=== PATIENT | female | born 1960 | race Caucasian/White ===

== ENCOUNTER 2019-04-17 16:15 | Emergency (ER) | payer OTHER ==
[2019-04-17 17:12] VITALS: TEMP 98.6
[2019-04-17] MEDS ORDERED: KETOROLAC 30 MG/ML 1 ML VIAL IVP STA (18:15)
[2019-04-17] MEDS ORDERED: SODIUM CHLORIDE 0.9% 1,000 ML IV STA (18:15)
--- NOTE | 2019-04-17 18:44 | ED ---
General Adult HPI - General Chief complaint: GI Bleed Stated complaint: rectal bleeding/dizziness Time Seen by Provider: 04/17/19 17:59 Source: patient Mode of arrival: ambulatory Limitations: no limitations - History of Present Illness Initial comments: 58-year-old female patient presents to the emergency department today for evaluation of abdominal pain, bloating, diarrhea. Patient states she has had some blood present in her stools. Patient states she does have a history of ulcerative colitis and believes this is a flare. States her last flare within 2011. Patient states that she has been attempting to see a outpatient clinic for her symptoms however she does not have insurance and they referred her to come to the emergency department. Patient denies any fever or chills with this. States she has had intermittent nausea. Patient states she has tried to change her diet to relieve symptoms however does not helping. Patient states today she was feeling a little weak and dizzy but she believes this is from not eating as much. She denies any hematuria, dysuria, urinary frequency, urinary urgency. Patient denies any recent rash, shortness breath, chest pain, back pain, numbness, tingling, dizziness, weakness, hematuria, dysuria, urinary urgency, urinary frequency, headache, visual changes, or any other complaints. - Related Data Home Medications Medication Instructions Recorded Confirmed Aspirin EC [Ecotrin Low Dose] 81 mg PO DAILY 04/17/19 04/17/19 Lisinopril [Prinivil] 5 mg PO DAILY 04/17/19 04/17/19 Oil Of Oregano 1 tab PO DAILY 04/17/19 04/17/19 [place] Extract 1 tab PO DAILY 04/17/19 04/17/19 Ubidecarenone [Co Q-10] 100 mg PO DAILY 04/17/19 04/17/19 Vitamin A 8,000 unit PO DAILY 04/17/19 04/17/19 Vitamin B Complex 1 cap PO DAILY 04/17/19 04/17/19 Previous Rx's Medication Instructions Recorded Mesalamine [Asacol Hd] 1,600 mg PO TID #180 tablet. 04/17/19 predniSONE 50 mg PO DAILY #5 tablet 04/17/19 Allergies Allergy/AdvReac Type Severity Reaction Status Date / Time Iodinated Contrast- Oral and Allergy resp arrest Verified 04/17/19 18:27 IV Dye Sulfa (Sulfonamide Allergy Rash/Hives Verified 04/17/19 18:27 Antibiotics) Review of Systems ROS Statement: Those systems with pertinent positive or pertinent negative responses have been documented in the HPI. ROS Other: All systems not noted in ROS Statement are negative. Past Medical History Past Medical History: Hypertension Additional Past Medical History / Comment(s): colitis History of Any Multi-Drug Resistant Organisms: None Reported Past Surgical History: Orthopedic Surgery Past Psychological History: No Psychological Hx Reported Smoking Status: Never smoker Past Alcohol Use History: Occasional Past Drug Use History: None Reported General Exam Limitations: no limitations General appearance: alert, in no apparent distress, other (Physical well- developed, well-nourished adult female patient in no acute distress. Vital signs upon presentation are temperature 98.6F, pulse 68, respirations 18, blood pressure 140/75, pulse ox 99% on room air.) Eye exam: Present: normal appearance, PERRL, EOMI. Absent: scleral icterus, conjunctival injection, periorbital swelling ENT exam: Present: normal exam, normal oropharynx, mucous membranes moist Respiratory exam: Present: normal lung sounds bilaterally. Absent: respiratory distress, wheezes, rales, rhonchi, stridor Cardiovascular Exam: Present: regular rate, normal rhythm, normal heart sounds. Absent: systolic murmur, diastolic murmur, rubs, gallop, clicks GI/Abdominal exam: Present: soft, normal bowel sounds. Absent: distended, tenderness, guarding, rebound, rigid Neurological exam: Present: alert, oriented X3, CN II-XII intact Psychiatric exam: Present: normal affect, normal mood Skin exam: Present: warm, dry, intact, normal color. Absent: rash Course Vital Signs 04/17/19 04/17/19 17:06 21:04 Temperature 98.6 F Pulse Rate 68 64 Respiratory 18 16 Rate Blood Pressure 140/75 136/85 O2 Sat by Pulse 99 99 Oximetry Medical Decision Making - Medical Decision Making 58-year-old female patient presents to the emergency department today for evaluation of abdominal bloating, cramping, diarrhea, and rectal bleeding. Physical examination revealed a soft nontender abdomen. She is afebrile. Vital signs are within normal ranges. Labs reviewed and revealed a normal white blood cell count. Normal hemoglobin. Patient does have history of ulcer colitis states this feels like her usual flareups. She is requesting prescription for Asacol. Patient does not currently have insurance. I will give prescription for asacol as well as prednisone to use in the event that the asacol does not clear symptoms. She is instructed to follow up with gastroenterology for recheck as soon as possible. She is given information for the [facility]. Return parameters were discussed in detail. She verbalizes understanding and agrees with this plan. - Lab Data Result diagrams: 04/17/19 18:20 04/17/19 18:20 Lab Results 04/17/19 04/17/19 04/17/19 Range/Units 18:20 18:20 18:20 WBC 9.0 (3.8-10.6) k/uL RBC 4.81 (3.80-5.40) m/uL Hgb 14.1 (11.4-16.0) gm/dL Hct 42.2 (34.0-46.0) % MCV 87.7 (80.0-100.0) fL MCH 29.2 (25.0-35.0) pg MCHC 33.3 (31.0-37.0) g/dL RDW 14.7 (11.5-15.5) % Plt Count 223 (150-450) k/uL Neutrophils % 66 % Lymphocytes % 24 % Monocytes % 6 % Eosinophils % 2 % Basophils % 1 % Neutrophils # 5.9 (1.3-7.7) k/uL Lymphocytes # 2.2 (1.0-4.8) k/uL Monocytes # 0.5 (0-1.0) k/uL Eosinophils # 0.2 (0-0.7) k/uL Basophils # 0.1 (0-0.2) k/uL PT 10.8 (9.0-12.0) sec INR 1.0 (<1.2) APTT 23.2 (22.0-30.0) sec Sodium 142 (137-145) mmol/L Potassium 3.7 (3.5-5.1) mmol/L Chloride 106 (98-107) mmol/L Carbon Dioxide 27 (22-30) mmol/L Anion Gap 9 mmol/L BUN 11 (7-17) mg/dL Creatinine 0.92 (0.52-1.04) mg/dL Est GFR (CKD-EPI)AfAm 79 (>60 ml/min/1.73 sqM) Est GFR (CKD-EPI)NonAf 69 (>60 ml/min/1.73 sqM) Glucose 107 H (74-99) mg/dL Calcium 9.8 (8.4-10.2) mg/dL Total Bilirubin 0.4 (0.2-1.3) mg/dL AST 24 (14-36) U/L ALT 30 (9-52) U/L Alkaline Phosphatase 61 (38-126) U/L Total Protein 7.1 (6.3-8.2) g/dL Albumin 4.3 (3.5-5.0) g/dL Amylase 42 (30-110) U/L Lipase 162 (23-300) U/L Urine Color Urine Appearance (Clear) Urine pH (5.0-8.0) Ur Specific [place] (1.001-1.035) Urine Protein (Negative) Urine Glucose (UA) (Negative) Urine Ketones (Negative) Urine Blood (Negative) Urine Nitrite (Negative) Urine Bilirubin (Negative) Urine Urobilinogen (<2.0) mg/dL Ur Leukocyte Esterase (Negative) Urine RBC (0-5) /hpf Urine WBC (0-5) /hpf Ur Squamous Epith Cells (0-4) /hpf Hyaline Casts (0-2) /lpf Urine Mucus (None) /hpf 04/17/19 Range/Units 19:55 WBC (3.8-10.6) k/uL RBC (3.80-5.40) m/uL Hgb (11.4-16.0) gm/dL Hct (34.0-46.0) % MCV (80.0-100.0) fL MCH (25.0-35.0) pg MCHC (31.0-37.0) g/dL RDW (11.5-15.5) % Plt Count (150-450) k/uL Neutrophils % % Lymphocytes % % Monocytes % % Eosinophils % % Basophils % % Neutrophils # (1.3-7.7) k/uL Lymphocytes # (1.0-4.8) k/uL Monocytes # (0-1.0) k/uL Eosinophils # (0-0.7) k/uL Basophils # (0-0.2) k/uL PT (9.0-12.0) sec INR (<1.2) APTT (22.0-30.0) sec Sodium (137-145) mmol/L Potassium (3.5-5.1) mmol/L Chloride (98-107) mmol/L Carbon Dioxide (22-30) mmol/L Anion Gap mmol/L BUN (7-17) mg/dL Creatinine (0.52-1.04) mg/dL Est GFR (CKD-EPI)AfAm (>60 ml/min/1.73 sqM) Est GFR (CKD-EPI)NonAf (>60 ml/min/1.73 sqM) Glucose (74-99) mg/dL Calcium (8.4-10.2) mg/dL Total Bilirubin (0.2-1.3) mg/dL AST (14-36) U/L ALT (9-52) U/L Alkaline Phosphatase (38-126) U/L Total Protein (6.3-8.2) g/dL Albumin (3.5-5.0) g/dL Amylase (30-110) U/L Lipase (23-300) U/L Urine Color Yellow Urine Appearance Cloudy H (Clear) Urine pH 5.5 (5.0-8.0) Ur Specific [place] 1.013 (1.001-1.035) Urine Protein Negative (Negative) Urine Glucose (UA) Negative (Negative) Urine Ketones 1+ H (Negative) Urine Blood Small H (Negative) Urine Nitrite Negative (Negative) Urine Bilirubin Negative (Negative) Urine Urobilinogen <2.0 (<2.0) mg/dL Ur Leukocyte Esterase Trace H (Negative) Urine RBC 10 H (0-5) /hpf Urine WBC 3 (0-5) /hpf Ur Squamous Epith Cells 7 H (0-4) /hpf Hyaline Casts 2 (0-2) /lpf Urine Mucus Moderate H (None) /hpf - Radiology Data Radiology results: report reviewed, image reviewed Two-view x-ray of the abdomen is obtained. Report was reviewed in its entirety. Impression by Dr. Sandra Pineda shows no acute radiographic process Disposition Clinical Impression: Exacerbation of ulcerative colitis Disposition: HOME SELF-CARE Condition: Good Instructions (If sedation given, give patient instructions): Ulcerative Colitis (ED) Additional Instructions: Increase fluids. Take medications as directed. Follow-up with the primary care physician for recheck in 1-2 days. Return to emergency department immediately for any new, worsening, or concerning symptoms. Prescriptions: Mesalamine [Asacol Hd] 1,600 mg PO TID #180 tablet. predniSONE 50 mg PO DAILY #5 tablet Is patient prescribed a controlled substance at d/c from ED?: No Referrals: [facility] [NON-STAFF] - 1-2 days Time of Disposition: 20:51
[2019-04-17 18:47] LABS: Basophils # (A) 0.1 k/uL (0-0.2); Basophils % (A) 1 %; Eosinophils # (A) 0.2 k/uL (0-0.7); Eosinophils % (A) 2 %; HCT 42.2 % (34.0-46.0); HGB 14.1 gm/dL (11.4-16.0); Lymphocytes # (A) 2.2 k/uL (1.0-4.8); Lymphocytes % (A) 24 %; MCH 29.2 pg (25.0-35.0); MCHC 33.3 g/dL (31.0-37.0); MCV 87.7 fL (80.0-100.0); Monocytes # (A) 0.5 k/uL (0-1.0); Monocytes % (A) 6 %; Neutrophils # (A) 5.9 k/uL (1.3-7.7); Neutrophils % (A) 66 %; Platelet Count 223 k/uL (150-450); RBC 4.81 m/uL (3.80-5.40); RDW 14.7 % (11.5-15.5)
[2019-04-17 18:57] LABS: Partial Thromboplastin Time 23.2 sec (22.0-30.0); Prothrombin Time 10.8 sec (9.0-12.0)
[2019-04-17 19:12] LABS: Albumin 4.3 g/dL (3.5-5.0); Calcium 9.8 mg/dL (8.4-10.2); Potassium 3.7 mmol/L (3.5-5.1); Total Bilirubin 0.4 mg/dL (0.2-1.3); Total Protein 7.1 g/dL (6.3-8.2)
--- NOTE | 2019-04-17 19:58 | XR ---
EXAMINATION TYPE: XR KUB 2 views DATE OF EXAM: 04/17/2019 COMPARISON: NONE HISTORY: Pain and rectal bleeding TECHNIQUE: 2 upright views FINDINGS: Visualized lung bases and pleural spaces are negative. There is no bowel obstruction. Bowel gas pattern is normal. No pneumatosis or pneumoperitoneum. No acute skeletal or soft tissue findings are evident. IMPRESSION: No acute radiographic process.
[2019-04-17 20:08] LABS: Appearance,Urine Cloudy (Clear); Bilirubin,Urine Negative (Negative); Blood,Urine Small (Negative); Color,Urine Yellow; Glucose,Urine (UA) Negative (Negative); Hyaline Casts,Urine 2 /lpf (0-2); Ketones,Urine 1+ (Negative); Leukocyte Esterase,Urine Trace (Negative); Mucus,Urine Moderate /hpf; Nitrite,Urine Negative (Negative); PH, Urine 5.5 (5.0-8.0); Protein,Urine Negative (Negative); RBC,Urine 10 /hpf (0-5); Specific Gravity,Urine 1.013 (1.001-1.035); Squamous Epithelial Cell,Urine 7 /hpf (0-4); Urobilinogen,Urine <2.0 mg/dL (<2.0); WBC,Urine 3 /hpf (0-5)
[2019-04-17 21:06] VITALS: BP 136/85; PULSE 64; RESP 16
== END 2019-04-17 21:13 | disposition home or self-care (01) ==
LOC: EC 16:15
DX: K51.90 Ulcerative colitis, unspecified, without complications (principal); I10 Essential (primary) hypertension; Z88.2 Allergy status to sulfonamides; Z91.041 Radiographic dye allergy status; Z79.82 Long term (current) use of aspirin; Z79.899 Other long term (current) drug therapy
CPT/HCPCS: 99285; 96374; 96361; 36415; 80053; 82150; 83690; 85025; 85610; 85730; 81001; 74018; J1885

== ENCOUNTER 2019-05-25 17:56 | Inpatient (IN) | payer OTHER ==
[2019-05-25] MEDS ORDERED: PANTOPRAZOLE 40 MG/10 ML VIAL IVP STA (18:37)
[2019-05-25] MEDS ORDERED: MORPHINE SULFATE 4 MG/ML SYRINGE IV STA (18:37)
[2019-05-25] MEDS ORDERED: SODIUM CHLORIDE 0.9% 1,000 ML IV STA (18:37)
[2019-05-25] MEDS ORDERED: ONDANSETRON 4 MG/2 ML VIAL IVP STA (18:37)
--- NOTE | 2019-05-25 18:41 | ED ---
Abdominal Pain HPI - General Chief Complaint: Abdominal Pain Stated Complaint: fever Time Seen by Provider: 05/25/19 18:07 Source: patient, RN notes reviewed, old records reviewed Mode of arrival: ambulatory Limitations: no limitations - History of Present Illness Initial Comments: Patient is a 58-year-old female with a history of ulcerative colitis. She presents emergency Department today with complaints of fever and lower abdominal pain and loose stools and bloody stools over the past day. She reports that she's been suffering from ulcerative colitis flareups for the past few months. She states she's been off and on steriods. . Patient states she was concerned today because she also noticed some blisters within her mouth and complained of this fever. Patient states that she has significant LLQ pain. Patient reports that she's been trying to follow-up intermittently with GI specialist but has been unable to. Patient reports that she has had a 20 pound weight loss over the past few months. She states that she's had persistent diarrhea and bloody stools for the past few months. - Related Data Home Medications Medication Instructions Recorded Confirmed Aspirin EC [Ecotrin Low Dose] 81 mg PO DAILY 04/17/19 05/25/19 Lisinopril [Prinivil] 5 mg PO DAILY 04/17/19 05/25/19 Oil Of Oregano 1 tab PO DAILY 04/17/19 05/25/19 [place] Extract 1 tab PO DAILY 04/17/19 05/25/19 Ubidecarenone [Co Q-10] 100 mg PO DAILY 04/17/19 05/25/19 Vitamin A 8,000 unit PO DAILY 04/17/19 05/25/19 Vitamin B Complex 1 cap PO DAILY 04/17/19 05/25/19 [place] 3-6-9 1 cap PO DAILY 05/25/19 05/25/19 traMADol HCL [Ultram] 25 - 50 mg PO Q6H PRN 05/25/19 05/25/19 Previous Rx's Medication Instructions Recorded Mesalamine [Asacol Hd] 1,600 mg PO TID #180 tablet. 04/17/19 Allergies Allergy/AdvReac Type Severity Reaction Status Date / Time Iodinated Contrast- Oral and Allergy resp arrest Verified 05/25/19 22:45 IV Dye Sulfa (Sulfonamide Allergy Rash/Hives Verified 05/25/19 22:45 Antibiotics) Review of Systems ROS Statement: Those systems with pertinent positive or pertinent negative responses have been documented in the HPI. ROS Other: All systems not noted in ROS Statement are negative. Past Medical History Past Medical History: Hypertension Additional Past Medical History / Comment(s): colitis History of Any Multi-Drug Resistant Organisms: None Reported Past Surgical History: Orthopedic Surgery Past Psychological History: No Psychological Hx Reported Smoking Status: Never smoker Past Alcohol Use History: Occasional Past Drug Use History: None Reported General Exam - General Exam Comments Initial Comments: Patient is a 58-year-old female. Alert and oriented 3. Patient is no significant distress. Limitations: no limitations General appearance: alert, in no apparent distress Head exam: Present: atraumatic, normocephalic, normal inspection Eye exam: Present: normal appearance, other (Pale conjunctiva) ENT exam: Present: normal exam Neck exam: Present: normal inspection. Absent: tenderness, meningismus, lymphadenopathy Respiratory exam: Present: normal lung sounds bilaterally. Absent: respiratory distress, wheezes, rales, rhonchi, stridor Cardiovascular Exam: Present: regular rate, normal rhythm, normal heart sounds. Absent: systolic murmur, diastolic murmur, rubs, gallop, clicks GI/Abdominal exam: Present: soft, tenderness (LLQ tenderness), normal bowel sounds. Absent: distended, guarding, rebound, rigid Extremities exam: Present: normal inspection, full ROM, normal capillary refill. Absent: tenderness, pedal edema, joint swelling, calf tenderness Back exam: Present: normal inspection Neurological exam: Present: alert, oriented X3, CN II-XII intact Psychiatric exam: Present: normal affect, normal mood Skin exam: Present: warm, dry, intact, normal color. Absent: rash Course Vital Signs 05/25/19 05/25/19 17:59 20:31 Temperature 99 F Pulse Rate 89 74 Respiratory 18 16 Rate Blood Pressure 153/90 130/87 O2 Sat by Pulse 100 99 Oximetry Medical Decision Making - Medical Decision Making Patient is a 58-year-old female presents emergency department today for chronic diarrhea, bloody stools. With history of ulcerative colitis. Patient reports that her hemoglobin and strep today when her reported to her at 11.4. Was 14 one month ago. Patient has significant left lower quadrant tenderness. Due to significant history of ALLERGY with IV contrast Patient had a computed tomography scan without contrast. There is evidence of some ulcerative colitis. No other significant changes were noted. Patient case was discussed with Dr. Wood. With significantly less, inability to follow-up with GI specialty soon discussed. Admit the Patient for IV fluids and consult. We'll start the Patient on IV steroids at this time. - Lab Data Result diagrams: 05/25/19 19:08 05/25/19 19:08 Lab Results 05/25/19 05/25/19 05/25/19 Range/Units 19:08 19:08 19:08 WBC 9.5 (3.8-10.6) k/uL RBC 3.92 (3.80-5.40) m/uL Hgb 11.4 (11.4-16.0) gm/dL Hct 35.0 (34.0-46.0) % MCV 89.3 (80.0-100.0) fL MCH 29.2 (25.0-35.0) pg MCHC 32.7 (31.0-37.0) g/dL RDW 13.3 (11.5-15.5) % Plt Count 421 (150-450) k/uL Neutrophils % 81 % Lymphocytes % 12 % Monocytes % 5 % Eosinophils % 1 % Basophils % 0 % Neutrophils # 7.7 (1.3-7.7) k/uL Lymphocytes # 1.1 (1.0-4.8) k/uL Monocytes # 0.5 (0-1.0) k/uL Eosinophils # 0.1 (0-0.7) k/uL Basophils # 0.0 (0-0.2) k/uL PT (9.0-12.0) sec INR (<1.2) APTT (22.0-30.0) sec Sodium 137 (137-145) mmol/L Potassium 3.9 (3.5-5.1) mmol/L Chloride 98 (98-107) mmol/L Carbon Dioxide 29 (22-30) mmol/L Anion Gap 10 mmol/L BUN 23 H (7-17) mg/dL Creatinine 0.96 (0.52-1.04) mg/dL Est GFR (CKD-EPI)AfAm 75 (>60 ml/min/1.73 sqM) Est GFR (CKD-EPI)NonAf 65 (>60 ml/min/1.73 sqM) Glucose 103 H (74-99) mg/dL Plasma Lactic Acid Devin (0.7-2.0) mmol/L Calcium 9.0 (8.4-10.2) mg/dL Total Bilirubin 0.4 (0.2-1.3) mg/dL AST 22 (14-36) U/L ALT 28 (9-52) U/L Alkaline Phosphatase 92 (38-126) U/L Total Protein 6.0 L (6.3-8.2) g/dL Albumin 3.1 L (3.5-5.0) g/dL Amylase 52 (30-110) U/L Lipase 169 (23-300) U/L Urine Color Urine Appearance (Clear) Urine pH (5.0-8.0) Ur Specific [place] (1.001-1.035) Urine Protein (Negative) Urine Glucose (UA) (Negative) Urine Ketones (Negative) Urine Blood (Negative) Urine Nitrite (Negative) Urine Bilirubin (Negative) Urine Urobilinogen (<2.0) mg/dL Ur Leukocyte Esterase (Negative) Urine RBC (0-5) /hpf Urine WBC (0-5) /hpf Ur Squamous Epith Cells (0-4) /hpf Amorphous Sediment (None) /hpf Urine Mucus (None) /hpf Stool Occult Blood (Negative) Blood Type A Positive Blood Type Confirm Blood Type Recheck CABO Indicated Antibody Screen NEGATIVE Spec Expiration Date 05/28/2019230705/25/19 05/25/19 05/25/19 Range/Units 19:08 19:08 20:14 WBC (3.8-10.6) k/uL RBC (3.80-5.40) m/uL Hgb (11.4-16.0) gm/dL Hct (34.0-46.0) % MCV (80.0-100.0) fL MCH (25.0-35.0) pg MCHC (31.0-37.0) g/dL RDW (11.5-15.5) % Plt Count (150-450) k/uL Neutrophils % % Lymphocytes % % Monocytes % % Eosinophils % % Basophils % % Neutrophils # (1.3-7.7) k/uL Lymphocytes # (1.0-4.8) k/uL Monocytes # (0-1.0) k/uL Eosinophils # (0-0.7) k/uL Basophils # (0-0.2) k/uL PT 10.5 (9.0-12.0) sec INR 1.0 (<1.2) APTT 26.0 (22.0-30.0) sec Sodium (137-145) mmol/L Potassium (3.5-5.1) mmol/L Chloride (98-107) mmol/L Carbon Dioxide (22-30) mmol/L Anion Gap mmol/L BUN (7-17) mg/dL Creatinine (0.52-1.04) mg/dL Est GFR (CKD-EPI)AfAm (>60 ml/min/1.73 sqM) Est GFR (CKD-EPI)NonAf (>60 ml/min/1.73 sqM) Glucose (74-99) mg/dL Plasma Lactic Acid Devin 0.9 (0.7-2.0) mmol/L Calcium (8.4-10.2) mg/dL Total Bilirubin (0.2-1.3) mg/dL AST (14-36) U/L ALT (9-52) U/L Alkaline Phosphatase (38-126) U/L Total Protein (6.3-8.2) g/dL Albumin (3.5-5.0) g/dL Amylase (30-110) U/L Lipase (23-300) U/L Urine Color Urine Appearance (Clear) Urine pH (5.0-8.0) Ur Specific [place] (1.001-1.035) Urine Protein (Negative) Urine Glucose (UA) (Negative) Urine Ketones (Negative) Urine Blood (Negative) Urine Nitrite (Negative) Urine Bilirubin (Negative) Urine Urobilinogen (<2.0) mg/dL Ur Leukocyte Esterase (Negative) Urine RBC (0-5) /hpf Urine WBC (0-5) /hpf Ur Squamous Epith Cells (0-4) /hpf Amorphous Sediment (None) /hpf Urine Mucus (None) /hpf Stool Occult Blood (Negative) Blood Type Blood Type Confirm A Positive Blood Type Recheck Antibody Screen Spec Expiration Date 05/25/19 05/25/19 Range/Units 20:15 21:33 WBC (3.8-10.6) k/uL RBC (3.80-5.40) m/uL Hgb (11.4-16.0) gm/dL Hct (34.0-46.0) % MCV (80.0-100.0) fL MCH (25.0-35.0) pg MCHC (31.0-37.0) g/dL RDW (11.5-15.5) % Plt Count (150-450) k/uL Neutrophils % % Lymphocytes % % Monocytes % % Eosinophils % % Basophils % % Neutrophils # (1.3-7.7) k/uL Lymphocytes # (1.0-4.8) k/uL Monocytes # (0-1.0) k/uL Eosinophils # (0-0.7) k/uL Basophils # (0-0.2) k/uL PT (9.0-12.0) sec INR (<1.2) APTT (22.0-30.0) sec Sodium (137-145) mmol/L Potassium (3.5-5.1) mmol/L Chloride (98-107) mmol/L Carbon Dioxide (22-30) mmol/L Anion Gap mmol/L BUN (7-17) mg/dL Creatinine (0.52-1.04) mg/dL Est GFR (CKD-EPI)AfAm (>60 ml/min/1.73 sqM) Est GFR (CKD-EPI)NonAf (>60 ml/min/1.73 sqM) Glucose (74-99) mg/dL Plasma Lactic Acid Devin (0.7-2.0) mmol/L Calcium (8.4-10.2) mg/dL Total Bilirubin (0.2-1.3) mg/dL AST (14-36) U/L ALT (9-52) U/L Alkaline Phosphatase (38-126) U/L Total Protein (6.3-8.2) g/dL Albumin (3.5-5.0) g/dL Amylase (30-110) U/L Lipase (23-300) U/L Urine Color Yellow Urine Appearance Clear (Clear) Urine pH 7.0 (5.0-8.0) Ur Specific [place] 1.008 (1.001-1.035) Urine Protein Negative (Negative) Urine Glucose (UA) Negative (Negative) Urine Ketones 1+ H (Negative) Urine Blood Trace H (Negative) Urine Nitrite Negative (Negative) Urine Bilirubin Negative (Negative) Urine Urobilinogen <2.0 (<2.0) mg/dL Ur Leukocyte Esterase Negative (Negative) Urine RBC 6 H (0-5) /hpf Urine WBC 6 H (0-5) /hpf Ur Squamous Epith Cells 1 (0-4) /hpf Amorphous Sediment Rare H (None) /hpf Urine Mucus Rare H (None) /hpf Stool Occult Blood Positive H (Negative) Blood Type Blood Type Confirm Blood Type Recheck Antibody Screen Spec Expiration Date 05/25/19 19:21 EKG shows sinus rhythm with premature atrial complex. Nonspecific T-wave abnormality. Abnormal EKG. Ventricular rate is 77 bpm. Was 180 ms. Confucianism 82 ms. QT QTc is 340/393 ms. - Radiology Data Radiology results: report reviewed Mild diffuse wall thickening and large bowel suggestive of nonspecific colitis. No free air. No bowel traction. Disposition Clinical Impression: Colitis, Occult blood positive stool, History of weight loss Disposition: ADMITTED IP TO THIS HOSP Condition: Good Is patient prescribed a controlled substance at d/c from ED?: No Referrals: None,Stated [Primary Care Provider] - 1-2 days Time of Disposition: 23:22
--- NOTE | 2019-05-25 19:27 | XR ---
EXAMINATION TYPE: XR KUB DATE OF EXAM: 05/25/2019 COMPARISON: 04/17/2019 HISTORY: Fever TECHNIQUE: Single view FINDINGS: Bowel gas pattern is normal. There is no sign of intestinal obstruction or pneumoperitoneum . Fecal pattern is normal. Lung bases are clear. There are no pathologic calcifications. There are nu merous phleboliths in the pelvis. IMPRESSION: Nonacute abdomen. No change.
[2019-05-25 19:32] LABS: Basophils % (A) 0 %; Eosinophils # (A) 0.1 k/uL (0-0.7); Eosinophils % (A) 1 %; HGB 11.4 gm/dL (11.4-16.0); Lymphocytes # (A) 1.1 k/uL (1.0-4.8); Lymphocytes % (A) 12 %; MCH 29.2 pg (25.0-35.0); MCHC 32.7 g/dL (31.0-37.0); MCV 89.3 fL (80.0-100.0); Mean Platelet Volume 6.5; Monocytes # (A) 0.5 k/uL (0-1.0); Monocytes % (A) 5 %; Neutrophils # (A) 7.7 k/uL (1.3-7.7); Neutrophils % (A) 81 %; Platelet Count 421 k/uL (150-450); RBC 3.92 m/uL (3.80-5.40); RDW 13.3 % (11.5-15.5); WBC 9.5 k/uL (3.8-10.6)
[2019-05-25 19:43] LABS: Albumin 3.1 g/dL (3.5-5.0); Potassium 3.9 mmol/L (3.5-5.1); Total Bilirubin 0.4 mg/dL (0.2-1.3)
[2019-05-25 19:51] LABS: Prothrombin Time 10.5 sec (9.0-12.0)
[2019-05-25] MEDS ORDERED: diphenhydrAMINE 50 MG/ML 1 ML VIAL IVP STA (20:01)
[2019-05-25] MEDS ORDERED: methylPREDNISolone SOD SUCCI 125 MG/2 ML VIAL IV STA (20:01)
[2019-05-25] MEDS ORDERED: FAMOTIDINE 20 MG/2 ML VIAL IV STA (20:01)
[2019-05-25] MEDS: SODIUM CHLORIDE 0.9% 1,000 ML IV SCH (20:24)
[2019-05-25 21:00] LABS: Amorphous Sediment,Urine Rare /hpf; Appearance,Urine Clear (Clear); Bilirubin,Urine Negative (Negative); Blood,Urine Trace (Negative); Color,Urine Yellow; Glucose,Urine (UA) Negative (Negative); Ketones,Urine 1+ (Negative); Leukocyte Esterase,Urine Negative (Negative); Mucus,Urine Rare /hpf; Nitrite,Urine Negative (Negative); Protein,Urine Negative (Negative); RBC,Urine 6 /hpf (0-5); Specific Gravity,Urine 1.008 (1.001-1.035); Squamous Epithelial Cell,Urine 1 /hpf (0-4); Urobilinogen,Urine <2.0 mg/dL (<2.0); WBC,Urine 6 /hpf (0-5)
--- NOTE | 2019-05-25 21:18 | CT ---
EXAMINATION TYPE: CT abdomen pelvis wo con DATE OF EXAM: 05/25/2019 COMPARISON: None HISTORY: Fever and rectal bleeding. History of ulcerative colitis. CT DLP: 349.3 mGycm Automated exposure control for dose reduction was used. TECHNIQUE: Helical acquisition of images was performed from the lung bases through the pelvis. FINDINGS: Lung bases are clear. There is no pleural effusion. Heart size is normal. There is no pericardial eff usion. There is 2 x 1 cm density in the gastric fundus that could be medication. Spleen appears leia l. There is no pancreatic mass. This irregular hypodense 3 cm area in the anterior right lobe of the liver that could be a hemangioma. There is 1.5 cm hypodensity anterior right lobe of the liver. This could be a cyst. Gallbladder appears normal. Bile ducts are not dilated. There is no adrenal mass. Kidneys have normal size. There is no hydronephrosis. Ureters are not dilat ed. Bladder distends smoothly. There is no free fluid in the pelvis. There is no inguinal hernia. There is mild wall thickening and straightening of the rectosigmoid colon. There is also mild wall th ickening of the descending colon and transverse colon. Uterus is anteverted. Lumbar spine is intact. Bony pelvis is intact. IMPRESSION: THERE IS MILD DIFFUSE WALL THICKENING OF THE LARGE BOWEL SUGGESTIVE OF NONSPECIFIC COLITIS. NO FREE A IR. NO EVIDENCE OF BOWEL OBSTRUCTION.
[2019-05-25] MEDS ORDERED: NALOXONE 0.4 MG/ML 1 ML VIAL IV PRN (23:23)
[2019-05-26] MEDS: MORPHINE SULFATE 4 MG/ML SYRINGE IV PRN ×3 (00:54→21:57)
[2019-05-26] MEDS: SODIUM CHLORIDE 0.9% 1,000 ML IV SCH ×2 (06:14→07:48)
[2019-05-26] MEDS: methylPREDNISolone SOD SUCCI 40 MG/ML 1 ML VIAL IV SCH ×3 (12:31→23:24)
[2019-05-26] MEDS: BALSALAZIDE DISODIUM 750 MG CAPSULE PO SCH ×2 (12:33→17:15)
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
[2019-05-27] MEDS: MORPHINE SULFATE 4 MG/ML SYRINGE IV PRN ×3 (02:53→21:02)
[2019-05-27] MEDS: SODIUM CHLORIDE 0.9% 1,000 ML IV SCH ×3 (03:37→20:56)
[2019-05-27] MEDS: BALSALAZIDE DISODIUM 750 MG CAPSULE PO SCH ×3 (07:16→17:00)
[2019-05-27] MEDS: methylPREDNISolone SOD SUCCI 40 MG/ML 1 ML VIAL IV SCH ×2 (07:16→15:10)
[2019-05-27 09:04] LABS: Basophils % (A) 0 %; Eosinophils % (A) 0 %; HCT 34.7 % (34.0-46.0); HGB 10.8 gm/dL (11.4-16.0); Lymphocytes # (A) 1.1 k/uL (1.0-4.8); Lymphocytes % (A) 11 %; MCH 28.6 pg (25.0-35.0); Mean Platelet Volume 6.7; Monocytes # (A) 0.5 k/uL (0-1.0); Monocytes % (A) 5 %; Neutrophils # (A) 8.2 k/uL (1.3-7.7); Neutrophils % (A) 82 %; Platelet Count 495 k/uL (150-450); RBC 3.77 m/uL (3.80-5.40); RDW 13.5 % (11.5-15.5)
[2019-05-27 09:14] LABS: C Reactive Protein 57.7 mg/L (<10.0); Potassium 4.5 mmol/L (3.5-5.1); Total Bilirubin 0.3 mg/dL (0.2-1.3); Total Protein 5.7 g/dL (6.3-8.2)
--- NOTE | 2019-05-27 10:01 | PN ---
PROGRESS NOTE DATE OF DICTATION: May 27, 2019 Patient is a 58-year-old pleasant white female with longstanding history of ulcerative colitis diagnosed in 1973. She recently was admitted to the hospital because of flare- up of ulcerative colitis. For the last 2 months, she has been having bloody diarrhea with bowel movements anywhere from 10 a day which are loose to watery in consistency associated with left lower quadrant abdominal pain and cramping. She was started on IV steroids yesterday with Solu-Medrol 20 mg q.8 hours and she is feeling much better. She still has left lower quadrant abdominal pain and frequent bowel movements with some blood and mucus in the stool. No nausea or vomiting. PHYSICAL EXAMINATION: Appears comfortable. No apparent distress. VITAL SIGNS: Stable. Blood pressure is 105/67, pulse rate 80, temperature 98.2. HEENT examination unremarkable. Conjunctivae pink. Sclerae anicteric. Oral cavity no lesions. NECK: No JVD or lymph node enlargement. CHEST: Clear to auscultation. HEART: Regular rate and rhythm. ABDOMEN: Soft. Bowel sounds are positive. No organomegaly. EXTREMITIES: No pedal edema. SKIN no rashes. NEUROLOGIC: Alert and oriented x3. No focal deficits. LABS: From today: WBC 10, hemoglobin 10.8, platelets normal. CRP is 57.7. Basic metabolic panel is within normal limits. IMPRESSION: Exacerbation of ulcerative colitis. Presently on IV steroids with Solu-Medrol 20 mg q.8 hours and clinically, gradually improving. RECOMMENDATIONS: 1. Continue with IV Solu-Medrol today and if she is doing much better, she can be switched to oral prednisone 40 mg daily tomorrow, which needs to be tapered by 5 mg every week on an outpatient basis. 2. Continue with Colazal 1500 mg 3 times daily. 3. Advance to regular diet. 4. Thank you for this consultation. We will follow with you closely. MMODL / IJN: [id number] /
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
[2019-05-28] MEDS: methylPREDNISolone SOD SUCCI 40 MG/ML 1 ML VIAL IV SCH ×3 (00:17→16:55)
[2019-05-28] MEDS: MORPHINE SULFATE 4 MG/ML SYRINGE IV PRN ×3 (04:12→21:50)
[2019-05-28] MEDS: BALSALAZIDE DISODIUM 750 MG CAPSULE PO SCH ×3 (07:19→16:55)
[2019-05-28] MEDS: SODIUM CHLORIDE 0.9% 1,000 ML IV SCH ×2 (07:20→16:57)
[2019-05-28 09:54] LABS: Basophils % (A) 0 %; Eosinophils % (A) 0 %; HCT 34.8 % (34.0-46.0); HGB 10.6 gm/dL (11.4-16.0); Lymphocytes # (A) 0.7 k/uL (1.0-4.8); Lymphocytes % (A) 6 %; MCH 28.2 pg (25.0-35.0); MCHC 30.6 g/dL (31.0-37.0); MCV 92.1 fL (80.0-100.0); Mean Platelet Volume 6.4; Monocytes # (A) 0.3 k/uL (0-1.0); Monocytes % (A) 3 %; Neutrophils # (A) 10.6 k/uL (1.3-7.7); Neutrophils % (A) 90 %; Platelet Count 548 k/uL (150-450); RBC 3.78 m/uL (3.80-5.40); RDW 13.6 % (11.5-15.5); WBC 11.8 k/uL (3.8-10.6)
--- NOTE | 2019-05-28 18:54 | P.PN ---
Subjective Progress Note Date: 05/28/19 Principal diagnosis: GI bleed Patient was seen and examined. No acute events overnight. Patient reports improvement in her hematochezia. She does continue to complain of some d iarrhea, multiple episodes today described as watery and mucousy. She denies any chest pain, shortness of breath or palpitations. Feels like the left side of her abdomen is distended. Objective - Vital Signs Vital signs: Vital Signs Temp 98.7 F 05/28/19 14:39 Pulse 84 05/28/19 14:39 Resp 16 05/28/19 14:39 BP 127/78 05/28/19 14:39 Pulse Ox 99 05/28/19 14:39 Intake & Output 05/27/19 05/28/19 05/28/19 18:59 06:59 18:59 Intake Total 1000 500 900 Balance 1000 500 900 Intake: Oral 1000 500 900 Other: Voiding Method Toilet Toilet # Voids 2 2 2 - Exam General: [non toxic], [no distress], [appears at stated age] Derm: [warm], [dry] Head: [atraumatic], [normocephalic], [symmetric] Eyes: [EOMI], [no lid lag], [anicteric sclera] Mouth: [no lip lesion], [mucus membranes moist] Cardiovascular: [S1S2 reg], [no murmur], [positive posterior tibial pulse bilateral], Lungs: [CTA bilateral], [no rhonchi, no rales] , [no accessory muscle use] Abdominal: [soft], [tenderness to deep palpation of the left upper and lower quadrant without rebound], [no guarding], [no appreciable organomegaly] Ext: [no gross muscle atrophy], [no edema], [no contractures] Neuro: [ CN II-XI grossly intact], [no focal neuro deficits] Psych: [Alert], [oriented], [appropriate affect] - Labs CBC & Chem 7: 05/28/19 09:06 05/27/19 08:17 Labs: Abnormal Lab Results - Last 24 Hours (Table) 05/27/19 05/28/19 Range/Units 08:17 09:06 WBC 11.8 H (3.8-10.6) k/uL RBC 3.78 L (3.80-5.40) m/uL Hgb 10.6 L (11.4-16.0) gm/dL MCHC 30.6 L (31.0-37.0) g/dL Plt Count 548 H (150-450) k/uL Neutrophils # 10.6 H (1.3-7.7) k/uL Lymphocytes # 0.7 L (1.0-4.8) k/uL Iron 19 L (50-170) ug/dL TIBC 190 L (228-460) ug/dL Iron Saturation 10.00 L (12.00-45.00) Microbiology - Last 24 Hours (Table) 05/25/19 21:35 Stool Culture - Final Stool Assessment and Plan Assessment: Ulcerative colitis exacerbation Lower GI bleed C. difficile negative. Stool for occult blood positive. Plans: Continue Colazal. We'll switch Solu-Medrol to prednisone by mouth tomorrow. Follow GI recommendations. Hemoglobin 10.6 from 10.8. Plans: Daily CBC. Patient is pending clinical improvement. We'll follow GI recommendations. Likely DC in 1-2 days.
[2019-05-29] MEDS: MORPHINE SULFATE 4 MG/ML SYRINGE IV PRN ×3 (03:22→16:35)
[2019-05-29] MEDS: SODIUM CHLORIDE 0.9% 1,000 ML IV SCH ×3 (04:25→23:55)
[2019-05-29] MEDS: ASPIRIN 81 MG PO SCH (07:39)
[2019-05-29] MEDS: LISINOPRIL 5 MG TAB PO SCH (07:39)
[2019-05-29] MEDS: BALSALAZIDE DISODIUM 750 MG CAPSULE PO SCH ×3 (07:39→16:29)
[2019-05-29] MEDS ORDERED: predniSONE 20 MG TAB PO SCH (09:00)
[2019-05-29 09:49] LABS: Basophils % (A) 0 %; Eosinophils # (A) 0.2 k/uL (0-0.7); Eosinophils % (A) 3 %; HCT 30.2 % (34.0-46.0); HGB 9.7 gm/dL (11.4-16.0); Lymphocytes # (A) 1.3 k/uL (1.0-4.8); Lymphocytes % (A) 19 %; MCH 28.4 pg (25.0-35.0); MCV 88.6 fL (80.0-100.0); Mean Platelet Volume 6.8; Monocytes # (A) 0.4 k/uL (0-1.0); Monocytes % (A) 6 %; Neutrophils # (A) 4.8 k/uL (1.3-7.7); Neutrophils % (A) 71 %; Platelet Count 380 k/uL (150-450); RBC 3.41 m/uL (3.80-5.40); RDW 13.8 % (11.5-15.5); WBC 6.8 k/uL (3.8-10.6)
[2019-05-29 09:50] LABS: Calcium 8.4 mg/dL (8.4-10.2)
--- NOTE | 2019-05-29 11:43 | P.PN ---
Subjective Progress Note Date: 05/29/19 Principal diagnosis: Ulcerative colitis flare Patient was seen and examined. No acute events overnight. Patient reports urgency to defecate but unable to produce decent amount of stool. Complains of abdominal bloating. Specks of blood in stool. She denies any chest pain, sh ortness of breath or palpitations. No nausea or vomiting. No fever or chills. Objective - Vital Signs Vital signs: Vital Signs Temp 97.5 F L 05/29/19 04:25 Pulse 63 05/29/19 04:25 Resp 20 05/29/19 04:25 BP 120/69 05/29/19 04:25 Pulse Ox 95 05/29/19 04:25 Intake & Output 05/28/19 05/29/19 05/29/19 18:59 06:59 18:59 Intake Total 900 Balance 900 Intake: Oral 900 Other: Voiding Method Toilet # Voids 2 1 - Exam General: [non toxic], [no distress], [appears at stated age] Derm: [warm], [dry] Head: [atraumatic], [normocephalic], [symmetric] Eyes: [EOMI], [no lid lag], [anicteric sclera] Mouth: [no lip lesion], [mucus membranes moist] Cardiovascular: [S1S2 reg], [no murmur], [positive posterior tibial pulse bi lateral], Lungs: [CTA bilateral], [no rhonchi, no rales] , [no accessory muscle use] Abdominal: [soft], [tenderness to deep palpation of the left upper and lower quadrant without rebound], [no guarding], [no appreciable organomegaly] Ext: [no gross muscle atrophy], [no edema], [no contractures] Neuro: [no focal neuro deficits] Psych: [Alert], [oriented], [appropriate affect] - Labs CBC & Chem 7: 05/29/19 08:57 05/29/19 08:57 Labs: Abnormal Lab Results - Last 24 Hours (Table) 05/27/19 05/29/19 05/29/19 Range/Units 08:17 08:57 08:57 RBC 3.41 L (3.80-5.40) m/uL Hgb 9.7 L (11.4-16.0) gm/dL Hct 30.2 L (34.0-46.0) % BUN 22 H (7-17) mg/dL Iron 19 L (50-170) ug/dL TIBC 190 L (228-460) ug/dL Iron Saturation 10.00 L (12.00-45.00) Microbiology - Last 24 Hours (Table) 05/25/19 21:35 Stool Culture - Final Stool Assessment and Plan Assessment: Ulcerative colitis exacerbation Lower GI bleed C. difficile negative. Stool for occult blood positive. Plans: Continue Colazal. We will change patient back from prednisone to Solu-Medrol 20 mg IV every 8 hours. Repeat CRP in the morning. Follow GI recommendations. Repeat KUB. Hemoglobin 9.7 from 10.8. Plans: Daily CBC. Patient is pending clinical improvement. We'll follow GI recommendations. Likely DC in 1-2 days.
[2019-05-29 14:19] VITALS: BMI 22.1
--- NOTE | 2019-05-29 14:53 | XR ---
KUB HISTORY: Abdomen pain Frontal KUB and 2 images correlated to KUB 05/25/[address] abdomen pelvis 05/25/2019 Featureless appearance is noted to the colon in the distal transverse and descending colon region. No evident pneumoperitoneum or bowel obstruction. Multiple calcifications in the pelvis are again noted . Degenerative disc changes in the visualized spine. IMPRESSION: Correlate for colitis
[2019-05-29] MEDS: methylPREDNISolone SOD SUCCI 40 MG/ML 1 ML VIAL IV SCH ×2 (16:30→23:57)
[2019-05-29] MEDS: ONDANSETRON 4 MG/2 ML VIAL IVP PRN (18:02)
[2019-05-30] MEDS: MORPHINE SULFATE 4 MG/ML SYRINGE IV PRN ×4 (00:01→20:03)
[2019-05-30] MEDS: ASPIRIN 81 MG PO SCH (08:26)
[2019-05-30] MEDS: BALSALAZIDE DISODIUM 750 MG CAPSULE PO SCH ×3 (08:26→17:18)
[2019-05-30] MEDS: LISINOPRIL 5 MG TAB PO SCH (08:26)
[2019-05-30] MEDS: methylPREDNISolone SOD SUCCI 40 MG/ML 1 ML VIAL IV SCH ×3 (08:26→23:32)
[2019-05-30 10:20] LABS: HCT 29.2 % (34.0-46.0); HGB 9.6 gm/dL (11.4-16.0); MCH 29.2 pg (25.0-35.0); MCHC 32.8 g/dL (31.0-37.0); MCV 89.1 fL (80.0-100.0); Platelet Count 433 k/uL (150-450); RBC 3.28 m/uL (3.80-5.40); RDW 14.1 % (11.5-15.5); WBC 10.2 k/uL (3.8-10.6)
[2019-05-30 10:41] LABS: Potassium 4.2 mmol/L (3.5-5.1)
[2019-05-30 10:43] LABS: Albumin 2.4 g/dL (3.5-5.0); C Reactive Protein 63.8 mg/L (<10.0); Calcium 8.4 mg/dL (8.4-10.2); Total Bilirubin 0.2 mg/dL (0.2-1.3); Total Protein 4.9 g/dL (6.3-8.2)
--- NOTE | 2019-05-30 11:14 | P.PN ---
Subjective Progress Note Date: 05/30/19 Principal diagnosis: UC flare patient was seen and examined. No acute events overnight. Patient reports slow improvement in her symptoms since yesterday. Complains of abdominal pain, left- sided, 3-4 out of 10 ache exacerbated to 6 out of 10 in severity. Patient reports 2-3 watery bowel movements without any blood. She is tolerating minimal amounts of food. Hemoglobin from 9.7-9.6 this morning. Objective - Vital Signs Vital signs: Vital Signs Temp 97.9 F 05/30/19 05:40 Pulse 65 05/30/19 05:40 Resp 16 05/30/19 05:40 BP 114/71 05/30/19 05:40 Pulse Ox 98 05/30/19 05:40 Intake & Output 05/29/19 05/30/19 05/30/19 18:59 06:59 18:59 Weight 58.4 kg Other: # Voids 3 2 # Bowel Movements 0 - Exam General: [non toxic], [no distress], [appears at stated age] Derm: [warm], [dry] Head: [atraumatic], [normocephalic], [symmetric] Eyes: [EOMI], [no lid lag], [anicteric sclera] Mouth: [no lip lesion], [mucus membranes moist] Cardiovascular: [S1S2 reg], [no murmur], [positive posterior tibial pulse bilate ral], Lungs: [CTA bilateral], [no rhonchi, no rales] , [no accessory muscle use] Abdominal: [soft], [tenderness to deep palpation of the left upper and lower quadrant without rebound], [no guarding], [no appreciable organomegaly] Ext: [no gross muscle atrophy], [no edema], [no contractures] Neuro: [no focal neuro deficits] Psych: [Alert], [oriented], [appropriate affect] - Labs CBC & Chem 7: 05/30/19 09:50 05/30/19 09:50 Labs: Abnormal Lab Results - Last 24 Hours (Table) 05/30/19 05/30/19 Range/Units 09:50 09:50 RBC 3.28 L (3.80-5.40) m/uL Hgb 9.6 L (11.4-16.0) gm/dL Hct 29.2 L (34.0-46.0) % Carbon Dioxide 31 H (22-30) mmol/L BUN 22 H (7-17) mg/dL Glucose 165 H (74-99) mg/dL AST 11 L (14-36) U/L C-Reactive Protein 63.8 H (<10.0) mg/L Total Protein 4.9 L (6.3-8.2) g/dL Albumin 2.4 L (3.5-5.0) g/dL Microbiology - Last 24 Hours (Table) 05/25/19 21:35 Stool Culture - Final Stool Assessment and Plan Assessment: Ulcerative colitis exacerbation Lower GI bleed C. difficile negative. Stool for occult blood positive. As seen on CT abdomen and pelvis. Colitis confirmed on KUB yesterday of the transverse and descending colon. Plans: Continue Colazal. Continue Solu-Medrol 20 mg IV every 8 hours. Repeat CRP in the morning. Follow GI recommendations. Hemoglobin 9.6 from 10.8. Plans: Daily CBC. Patient is pending clinical improvement. We'll follow GI recommendations. Likely DC in 1-2 days.
[2019-05-30] MEDS: ONDANSETRON 4 MG/2 ML VIAL IVP PRN (11:45)
--- NOTE | 2019-05-30 12:23 | CDI ---
Documentation Clarification Form Date: 05/30/19 1221 From: Charmaine Valdez Admit Date: 05/27/2019 3:13:00 PM Patient Name: Constanza Smart Visit Number: [id number] ATTENTION: The Clinical Documentation Specialists (CDI) and [facility] Coding Staff appreciate your assistance in clarifying documentation. Please respond to the clarification below the line at the bottom and electronically sign. The CDI & [facility] Coding staff will review the response and follow-up if needed. Please note: Queries are made part of the Legal Health Record. If you have any questions, please contact the author of this message via ITS. Dr. Kelvin Mora A diagnosis of anemia lacks specificity to accurately reflect your patients severity of condition and clarification is needed. History/Risk Factors: exacerbation of uulcerative colitis w lower GIB Clinical indicators: 05/27 H&P: Normocytic anemia Hemoglobin:11.4/10.8/9.7/9.6 Hematocrit: 35/34.8/29.2/29.2 Treatment: IVF Bolus In order to capture the severity of condition, please clarify the type of anemia and etiology if known: Acute blood loss anemia Acute on chronic blood loss anemia Chronic blood loss anemia Iron deficiency anemia Drug induced anemia Nutritional anemia Unable to determine Other, please specify (Last Revision: August 2017) acute blood loss anemia MTDD
[2019-05-30] MEDS: SODIUM CHLORIDE 0.9% 1,000 ML IV SCH ×2 (13:35→19:30)
[2019-05-30 21:56] VITALS: RESP 18
[2019-05-31] MEDS: SODIUM CHLORIDE 0.9% 1,000 ML IV SCH ×3 (00:38→23:44)
[2019-05-31 08:13] LABS: Calcium 9.2 mg/dL (8.4-10.2); Potassium 4.9 mmol/L (3.5-5.1)
[2019-05-31 08:22] LABS: HCT 33.2 % (34.0-46.0); HGB 10.9 gm/dL (11.4-16.0); Hypochromasia Slight; MCH 29.6 pg (25.0-35.0); MCHC 32.7 g/dL (31.0-37.0); MCV 90.6 fL (80.0-100.0); Mean Platelet Volume 7.5; Platelet Count 528 k/uL (150-450); RBC 3.67 m/uL (3.80-5.40); RDW 14.1 % (11.5-15.5); WBC 12.3 k/uL (3.8-10.6)
[2019-05-31] MEDS: MORPHINE SULFATE 4 MG/ML SYRINGE IV PRN (08:28)
[2019-05-31] MEDS: ONDANSETRON 4 MG/2 ML VIAL IVP PRN (08:28)
[2019-05-31] MEDS: BALSALAZIDE DISODIUM 750 MG CAPSULE PO SCH ×3 (08:30→15:46)
[2019-05-31] MEDS: methylPREDNISolone SOD SUCCI 40 MG/ML 1 ML VIAL IV SCH (08:30)
[2019-05-31] MEDS: LISINOPRIL 5 MG TAB PO SCH (08:30)
[2019-05-31] MEDS: ASPIRIN 81 MG PO SCH (08:30)
[2019-05-31 08:52] LABS: Band Neutrophils % 15 %; Lymphocytes # (M) 1.11 k/uL (1.0-4.8); Metamyelocytes # (M) 0.25 k/uL (0); Metamyelocytes % 2 %; Myelocytes # (M) 0.49 k/uL (0); Myelocytes % 4 %; Neutrophils % (M) 59 %; Nucleated Red Blood Cells 0 /100 WBC (0-0); Total Cells Counted 200
[2019-05-31 08:53] LABS: Poikilocytosis (M) Present; Polychromasia Present
--- NOTE | 2019-05-31 10:14 | P.PN ---
Subjective Progress Note Date: 05/31/19 Principal diagnosis: UC flare Patient was seen and examined. No acute events overnight. Patient reports improvement in her abdominal pain. Complains of 6 out of 10 severity left-sided abdominal pain described as cramping in nature. States that she had a 2 tablespoons bowel movement around 11 PM last night. States that she had a 1 tablespoon rice-like bowel movement around 7:30 this morning. She denies any nausea or vomiting. No fever or chills. Objective - Vital Signs Vital signs: Vital Signs Temp 98 F 05/31/19 05:00 Pulse 55 L 05/31/19 05:00 Resp 18 05/31/19 05:00 BP 120/74 05/31/19 05:00 Pulse Ox 98 05/31/19 05:00 Intake & Output 05/30/19 05/31/19 05/31/19 18:59 06:59 18:59 Intake Total 400 Balance 400 Intake: Oral 400 Other: Voiding Method Toilet # Voids 3 1 # Bowel Movements 1 - Exam General: [non toxic], [no distress], [appears at stated age] Derm: [warm], [dry] Head: [atraumatic], [normocephalic], [symmetric] Eyes: [EOMI], [no lid lag], [anicteric sclera] Mouth: [no lip lesion], [mucus membranes moist] Cardiovascular: [S1S2 reg], [no murmur], [positive posterior tibial pulse bilateral], Lungs: [CTA bilateral], [no rhonchi, no rales] , [no accessory muscle use] Abdominal: [soft], [tenderness to deep palpation of the left upper and lower quadrant without rebound], [no guarding], [no appreciable organomegaly] Ext: [no gross muscle atrophy], [no edema], [no contractures] Neuro: [no focal neuro deficits] Psych: [Alert], [oriented], [appropriate affect] - Labs CBC & Chem 7: 05/31/19 07:33 05/31/19 07:33 Labs: Abnormal Lab Results - Last 24 Hours (Table) 05/30/19 05/30/19 05/31/19 Range/Units 09:50 09:50 07:33 WBC 12.3 H (3.8-10.6) k/uL RBC 3.28 L 3.67 L (3.80-5.40) m/uL Hgb 9.6 L 10.9 L (11.4-16.0) gm/dL Hct 29.2 L 33.2 L (34.0-46.0) % Plt Count 528 H (150-450) k/uL Neutrophils # (Manual) 9.10 H (1.3-7.7) k/uL Monocytes # (Manual) 1.60 H (0-1.0) k/uL Metamyelocytes # (Man) 0.25 H (0) k/uL Myelocytes # (Manual) 0.49 H (0) k/uL Carbon Dioxide 31 H (22-30) mmol/L BUN 22 H (7-17) mg/dL Creatinine (0.52-1.04) mg/dL Glucose 165 H (74-99) mg/dL AST 11 L (14-36) U/L C-Reactive Protein 63.8 H (<10.0) mg/L Total Protein 4.9 L (6.3-8.2) g/dL Albumin 2.4 L (3.5-5.0) g/dL //19 Range/Units 07:33 WBC (3.8-10.6) k/uL RBC (3.80-5.40) m/uL Hgb (11.4-16.0) gm/dL Hct (34.0-46.0) % Plt Count (150-450) k/uL Neutrophils # (Manual) (1.3-7.7) k/uL Monocytes # (Manual) (0-1.0) k/uL Metamyelocytes # (Man) (0) k/uL Myelocytes # (Manual) (0) k/uL Carbon Dioxide 32 H (22-30) mmol/L BUN 23 H (7-17) mg/dL Creatinine 1.06 H (0.52-1.04) mg/dL Glucose 122 H (74-99) mg/dL AST (14-36) U/L C-Reactive Protein (<10.0) mg/L Total Protein (6.3-8.2) g/dL Albumin (3.5-5.0) g/dL Assessment and Plan Assessment: Ulcerative colitis exacerbation Lower GI bleed Leukocytosis C. difficile negative. Stool for occult blood positive. As seen on CT abdomen and pelvis. Colitis confirmed on KUB yesterday of the transverse and descending colon. CRP slightly elevated from 57.7-63.8. Plans: Continue Colazal. Will discontinue Solu-Medrol and switched to prednisone daily. Add Bentyl. Change morphine to Toradol. Repeat CRP and CBC in the morning. Follow GI recommendations. Hemoglobin 9.6 to 10.9. Plans: Daily CBC. Patient no fever. No signs of infection. Likely steroid-induced. Plans: Daily CBC Patient shows slow improvement. Will repeat a hemoglobin tomorrow morning along with CRP. Possible DC tomorrow if CRP is trending down and patient is able to tolerate food by mouth.
[2019-05-31] MEDS: DICYCLOMINE 10 MG CAP PO SCH ×3 (11:17→21:23)
[2019-05-31] MEDS: predniSONE 20 MG TAB PO SCH (11:18)
[2019-05-31] MEDS: KETOROLAC 30 MG/ML 1 ML VIAL IVP PRN (21:23)
[2019-06-01] MEDS: KETOROLAC 30 MG/ML 1 ML VIAL IVP PRN ×2 (03:03→08:26)
[2019-06-01] MEDS: BALSALAZIDE DISODIUM 750 MG CAPSULE PO SCH ×3 (07:16→17:39)
[2019-06-01] MEDS: LISINOPRIL 5 MG TAB PO SCH (07:16)
[2019-06-01] MEDS: ASPIRIN 81 MG PO SCH (07:16)
[2019-06-01] MEDS: predniSONE 20 MG TAB PO SCH (07:16)
[2019-06-01] MEDS: DICYCLOMINE 10 MG CAP PO SCH ×2 (07:16→15:57)
[2019-06-01] MEDS: ONDANSETRON 4 MG/2 ML VIAL IVP PRN (07:17)
[2019-06-01 09:47] LABS: HGB 10.6 gm/dL (11.4-16.0); MCHC 32.2 g/dL (31.0-37.0); MCV 90.1 fL (80.0-100.0); Mean Platelet Volume 6.5; Platelet Count 564 k/uL (150-450); RBC 3.66 m/uL (3.80-5.40); RDW 13.7 % (11.5-15.5); WBC 17.7 k/uL (3.8-10.6)
[2019-06-01] MEDS ORDERED: traMADol 50 MG TAB PO STA (09:53)
[2019-06-01 10:01] LABS: C Reactive Protein 21.6 mg/L (<10.0); Calcium 8.9 mg/dL (8.4-10.2); Potassium 4.4 mmol/L (3.5-5.1)
--- NOTE | 2019-06-01 10:13 | P.DS ---
Providers Date of admission: 05/27/19 15:13 Expected date of discharge: 06/01/19 Attending physician: Shruthi Celis MD Primary care physician: Stated None Hospital Course: The patient is a 58-year-old female with a past medical history of ulcerative colitis diagnosed in the mid 70s that has been an remission for several years that presents to the ER via private vehicle with chief complaint of increasing bloody diarrhea and lower abdominal pain for the last 4-[address] of the abdomen and pelvis showed colitis of the transverse and descending colon. Patient is admitted for ulcerative colitis exacerbation with gastroenter ology on consult. Patient was seen by GI, recommended IV Solu-Medrol. Morphine, Toradol and tramadol was added to her pain regimen. Patient's hemoglobin remained stablefrom 9.6-11.4. Hemoglobin was 10.6 at the time of discharge.CRP was initially 57.7 which trended up to 63.8. CRP was trending down to 49.2 at the time of discharge. Patient was seen and examined prior to discharge. No acute events overnight. Patient reports slight improvement in her abdominal pain. States that she received Toradol around 9:30 PM but had worsening 8 out of 10 discomfort in her left-sided abdomen around 12:30 AM. Patient reports 3 bowel movements from 1:30 AM to 8:45 AM. States that her stool is getting thicker. She denies any blood in her stool. General: [non toxic], [no distress], [appears at stated age] Derm: [warm], [dry] Head: [atraumatic], [normocephalic], [symmetric] Eyes: [EOMI], [no lid lag], [anicteric sclera] Mouth: [no lip lesion], [mucus membranes moist] Cardiovascular: [S1S2 reg], [no murmur], [positive posterior tibial pulse bilateral], Lungs: [CTA bilateral], [no rhonchi, no rales] , [no accessory muscle use] Abdominal: [soft], [tenderness to deep palpation of the left upper and lower quadrant without rebound], [no guarding], [no appreciable organomegaly] Ext: [no gross muscle atrophy], [no edema], [no contractures] Neuro: [no focal neuro deficits] Psych: [Alert], [oriented], [appropriate affect] Ulcerative colitis exacerbation Lower GI bleed Leukocytosis C. difficile negative. Stool for occult blood positive. As seen on CT abdomen and pelvis. Colitis confirmed on KUB yesterday of the transverse and descending colon. CRP slightly elevated from 57.7-63.8-49.2. Plans: Continue Colazal. Will discontinue Solu-Medrol and switched to prednisone daily. Add Bentyl. Change morphine to Toradol. Add tramadol. Repeat CRP and CBC in the morning. Follow GI recommendations. Hemoglobin 9.6 to 10.6. Plans: Daily CBC. Patient no fever. No signs of infection. Likely steroid-induced. Plans: Daily CBC Patient shows slow improvement. Start tramadol for pain management. DC today if pain is controlled and patient is able to tolerate food by mouth. Pertinent Studies: CT abdomen and pelvis, KUB Patient Condition at Discharge: Good Plan - Discharge Summary New Discharge Prescriptions: New Dicyclomine [Bentyl] 10 mg PO TID #30 cap predniSONE See Taper PO DIRECTED 35 Days #196 tab Continue Vitamin A 8,000 unit PO DAILY [place] Extract 1 tab PO DAILY Vitamin B Complex 1 cap PO DAILY Ubidecarenone [Co Q-10] 100 mg PO DAILY Lisinopril [Prinivil] 5 mg PO DAILY Aspirin EC [Ecotrin Low Dose] 81 mg PO DAILY Oil Of Oregano 1 tab PO DAILY Mesalamine [Asacol Hd] 1,600 mg PO TID #180 tablet.dr [place] 3-6-9 1 cap PO DAILY Changed traMADol HCL [Ultram] 50 mg PO Q6H PRN #12 tablet PRN Reason: Pain Discharge Medication List Aspirin EC [Ecotrin Low Dose] 81 mg PO DAILY 04/17/19 [History] Lisinopril [Prinivil] 5 mg PO DAILY 04/17/19 [History] Mesalamine [Asacol Hd] 1,600 mg PO TID #180 tablet. 04/17/19 [Rx] Oil Of Oregano 1 tab PO DAILY 04/17/19 [History] [place] Extract 1 tab PO DAILY 04/17/19 [History] Ubidecarenone [Co Q-10] 100 mg PO DAILY 04/17/19 [History] Vitamin A 8,000 unit PO DAILY 04/17/19 [History] Vitamin B Complex 1 cap PO DAILY 04/17/19 [History] [place] 3-6-9 1 cap PO DAILY 05/25/19 [History] Dicyclomine [Bentyl] 10 mg PO TID #30 cap 06/01/19 [Rx] predniSONE See Taper PO DIRECTED 35 Days #196 tab 06/01/19 [Rx] traMADol HCL [Ultram] 50 mg PO Q6H PRN #12 tablet 06/01/19 [Rx] Follow up Appointment(s)/Referral(s): None,Stated [Primary Care Provider] - 1-2 days [place] MD [STAFF PHYSICIAN] - 1 Week Activity/Diet/Wound Care/Special Instructions: Will need Indigent form sent to [facility] pharmacy when d/c order is in, form on front of chart. Follow-up with PCP within 1-2 days of discharge. Follow-up with gastroenterology within 1 week of discharge. Take home medications as advised. Discharge Disposition: HOME SELF-CARE
[2019-06-01] MEDS: SODIUM CHLORIDE 0.9% 1,000 ML IV SCH ×2 (12:28→19:30)
[2019-06-01 13:40] VITALS: BP 120/78; PULSE 66; TEMP 97.8
== END 2019-06-01 19:46 | disposition home or self-care (01) | DRG 386 ==
LOC: EC 17:56 → 4MS4W 22:57 → OBSVTOIN 05-27 15:13
PROVIDERS: ADMIT Internal Medicine; ATTEND Internal Medicine
DX: K51.511 Left sided colitis with rectal bleeding (principal); D62 Acute posthemorrhagic anemia; I10 Essential (primary) hypertension; D72.829 Elevated white blood cell count, unspecified; T38.0X5A Adverse effect of glucocorticoids and synthetic analogues, initial encounter; M19.90 Unspecified osteoarthritis, unspecified site; Z79.1 Long term (current) use of non-steroidal anti-inflammatories (NSAID); Z79.82 Long term (current) use of aspirin; Z79.899 Other long term (current) drug therapy; Z91.041 Radiographic dye allergy status; Z98.890 Other specified postprocedural states; Z88.2 Allergy status to sulfonamides
CPT/HCPCS: 36415; 74018; 74176; 80048; 80053; 81001; 82150; 82272; 82728; 83540; 83550; 83605; 83690; 85025; 85027; 85610; 85730; 86140; 86850; 86900; 86901; 87045; 87046; 87086; 87324; 93005; 96361; 96374; 96375; 99285